=== PATIENT | female | born 1955 | race Caucasian/White ===

== ENCOUNTER 2019-03-02 07:23 | Emergency (ER) | payer OTHER ==
--- NOTE | 2019-03-02 07:40 | EDM.PDOC ---
ED HPI GENERAL MEDICAL PROBLEM - General Chief Complaint: Lower Extremity Injury/Pain Stated Complaint: RT KNEE HURTS Time Seen by Provider: 03/02/19 07:38 - History of Present Illness INITIAL COMMENTS - FREE TEXT/NARRATIVE: HISTORY AND PHYSICAL: History of present illness: Patient is 63-year-old white female presents with concern of acute right knee injury that occurred last night when she slipped on the ice she denies other injury or concern and has no other complaints she's had difficulty weightbearing due to discomfort. Review of systems: As per history of present illness and below otherwise all systems reviewed and negative. Past medical history: As per history of present illness and as reviewed below otherwise noncontributory. Surgical history: As per history of present illness and as reviewed below otherwise noncontributory. Social history: No reported history of drug or alcohol abuse. Family history: As per history of present illness and as reviewed below otherwise noncontributory. Physical exam: HEENT: Atraumatic, normocephalic, pupils reactive, negative for conjunctival pallor or scleral icterus, mucous membranes moist, throat clear, neck supple, nontender, trachea midline. Lungs: Clear to auscultation, breath sounds equal bilaterally, chest nontender. Heart: S1S2, regular, negative for clicks, rubs, or JVD. Abdomen: Soft, nondistended, nontender. Negative for masses or hepatosplenomegaly. Negative for costovertebral tenderness. Pelvis: Stable nontender. Genitourinary: Deferred. Rectal: Deferred. Extremities: Right knee has tenderness to palpation is no gross deformity CMS neurovascular seems unremarkable there is no crepitation noted no gross effusion on exam. Neuro: Awake, alert, oriented. Cranial nerves II through XII unremarkable. Cerebellum unremarkable. Motor and sensory unremarkable throughout. Exam nonfocal. Diagnostics: X-ray right knee Therapeutics: Immobilizer/crutches Impression: 1 acute right knee injury Definitive disposition and diagnosis as appropriate pending reevaluation and review of above. right knee Pain Score (Numeric/FACES): 3 - Related Data Allergies Allergy/AdvReac Type Severity Reaction Status Date / Time codeine Allergy Nausea Verified 03/02/19 07:33 Home Meds: Home Meds Celecoxib 200 mg PO DAILY 03/02/19 [History] Review of Systems - Review of Systems Review Of Systems: Comprehensive ROS is negative, except as noted in HPI. ED EXAM, GENERAL - Physical Exam Exam: See Below (Dictation) Course - Vital Signs Last Recorded V/S: Last Vital Signs Temp 35.9 C 03/02/19 07:34 Pulse 87 03/02/19 07:34 Resp 18 03/02/19 07:34 BP 141/51 H 03/02/19 07:34 Pulse Ox 97 03/02/19 07:34 Departure - Departure Time of Disposition: 05:06 Disposition: Home, Self-Care 01 Clinical Impression: Knee pain, right - Discharge Information Instructions: Knee Sprain, Adult, [id number] Referrals: PCP,None [Primary Care Provider] - Forms: ED Department Discharge Additional Instructions: The following information is given to patients seen in the emergency department who are being discharged to home. This information is to outline your options for follow-up care. We provide all patients seen in our emergency department with a follow-up referral. The need for follow-up, as well as the timing and circumstances, are variable depending upon the specifics of your emergency department visit. If you don't have a primary care physician on staff, we will provide you with a referral. We always advise you to contact your personal physician following an emergency department visit to inform them of the circumstance of the visit and for follow-up with them and/or the need for any referrals to a consulting specialist. The emergency department will also refer you to a specialist when appropriate. This referral assures that you have the opportunity for follow-up care with a specialist. All of these measure are taken in an effort to provide you with optimal care, which includes your follow-up. Under all circumstances we always encourage you to contact your private physician who remains a resource for coordinating your care. When calling for follow-up care, please make the office aware that this follow-up is from your recent emergency room visit. If for any reason you are refused follow-up, please contact the [facility] Emergency Department at and asked to speak to the emergency department charge nurse. [facility] [address] [place] [id number] [place] [address] 1. Rest, ice, elevate the affected extremity. Please wear the splint and crutches as directed. 2. Tylenol and/or Ibuprofen as needed for pain management. 3. Follow up with the Orthopedic provider as we discussed. Return to the ED as needed and as discussed. Sepsis Event Note - Focused Exam Date Exam was Performed: 03/03/19 Time Exam was Performed: 05:06
--- NOTE | 2019-03-02 08:15 | CR ---
INDICATION: Fall. Pain. COMPARISON: None. TECHNIQUE: Three views of the right knee. FINDINGS: No acute fracture. Alignment is within normal limits. Severe lateral compartment joint space narrowing and osteophyte formation. Joint effusion. IMPRESSION: No acute osseous abnormality. Joint effusion. Severe lateral compartment degenerative arthritic change. Dictated by Grayson Arenas MD @ Mar 02 2019 8:11AM Signed by Dr. Grayson Arenas @ Mar 02 2019 8:13AM
== END 2019-03-02 08:50 | disposition home or self-care (01) ==
LOC: MW.ED 07:23
DX: S89.91XA Unspecified injury of right lower leg, initial encounter (principal); Z88.5 Allergy status to narcotic agent; Z79.899 Other long term (current) drug therapy; W00.0XXA Fall on same level due to ice and snow, initial encounter
CPT/HCPCS: 73562-26-RT; 73562-RT; 99283; 99283-25